=== PATIENT | male | born 1935 | race Caucasian/White ===

== ENCOUNTER 2025-03-06 15:58 | Inpatient (IN) | payer MEDICARE ==
[~2025-03-06] VITALS: Ht 180.3 cm; Wt 94.9 kg
[2025-03-06] MEDS ORDERED: FentaNYL Citrate 50 MCG/ML 2 ML Injection ONE (16:08)
[2025-03-06] MEDS ORDERED: FentaNYL Citrate 50 MCG/ML 2 ML Injection IV ONE (16:10)
[2025-03-06] MEDS ORDERED: CeFAZolin Sodium 2,000 MG in NS 100 ML IV ONE (16:15)
[2025-03-06] MEDS ORDERED: TAMS.4ER PO (16:15)
[2025-03-06] MEDS ORDERED: Aspir 8181 MG PO (16:16)
[2025-03-06] MEDS ORDERED: METO25ER PO (16:16)
[2025-03-06 16:29] LABS: BASOPHILS ABSOLUTE AUTO 0.04 K/mm3 (0.00-0.23); BASOPHILS PERCENT AUTO 0 % (0-2); EOSINOPHILS ABSOLUTE AUTO 0.20 K/mm3 (0.00-0.68); EOSINOPHILS PERCENT AUTO 2 % (0-6); Hematocrit 40.1 % (37.0-53.0); Hemoglobin 13.3 g/dL (13.5-17.5); IMMATURE GRAN ABSOLUTE AUTO 0.05 K/mm3 (0.00-0.10); IMMATURE GRAN PERCENT AUTO 1 % (0-1); LYMPHOCYTES ABSOLUTE AUTO 2.94 K/mm3 (0.84-5.20); LYMPHOCYTES PERCENT AUTO 32 % (21-46); MONOCYTES ABSOLUTE AUTO 1.08 K/mm3 (0.16-1.47); MONOCYTES PERCENT AUTO 12 % (4-13); Mean Corpuscular HGB Conc 33.2 g/dL (31.5-36.5); Mean Corpuscular Volume 92 fL (80-100); NEUTROPHILS ABSOLUTE AUTO 4.76 K/mm3 (1.96-9.15); NEUTROPHILS PERCENT AUTO 53 % (41-73); NRBC ABSOLUTE 0.00 K/mm3 (0.00-0.02); NRBC Auto 0.0 /100 WBC (0.0-0.2); Platelet Count 179 K/mm3 (150-400); RDW Coefficient Variation 14.1 % (11.7-14.2); RDW Standard Deviation 47.3 fL (35.1-46.3)
[2025-03-06 16:55] LABS: Alanine Aminotransfer (ALT/SGP 25.0 U/L (12-78); Albumin, Blood 3.4 g/dL (3.4-5.0); Albumin/Globulin Ratio 0.9 (0.8-1.8); Anion Gap 6.0 mmol/L (3-11); Aspartate Aminotrans (AST/SGOT 25.0 U/L (12-37); Bilirubin, Total 0.5 mg/dL (0.1-1.0); Blood Urea Nitrogen 16.0 mg/dL (8-24); CO2, Blood 27.0 mmol/L (21-32); Calcium, Blood 8.6 mg/dL (8.5-10.1); Chloride, Blood 108.0 mmol/L (98-108); Creatinine, Blood 0.81 mg/dL (0.60-1.20); Globulin, Blood 3.8 g/dL (2.2-4.0); Glucose, Blood 114.0 mg/dL (70-99); Potassium, Blood 3.8 mmol/L (3.5-5.5); Sodium, Blood 137.0 mmol/L (136-145); Total Protein, Blood 7.2 g/dL (6.4-8.2)
[2025-03-06] MEDS ORDERED: OMEP20ER PO (16:55)
[2025-03-06] MEDS ORDERED: TRAZ100 PO (16:56)
[2025-03-06] MEDS ORDERED: LATANOPROST2.5 M3 BOTHEYES (16:57)
[2025-03-06] MEDS ORDERED: HYDROmorphone HCl/Pf 1MG SYR IV ONE (17:55)
[2025-03-06] MEDS ORDERED: Ondansetron HCl 2 MG / ML 2ML Vial IV PRN (18:15)
[2025-03-06] MEDS ORDERED: OxyCODONE 5 mg/Acetamin 325 mg TABLET PO PRN (18:15)
[2025-03-06] MEDS ORDERED: FentaNYL Citrate 50 MCG/ML 2 ML Injection IV PRN (18:20)
[2025-03-06] MEDS ORDERED: Morphine Sulfate 4 MG/1 ML Injection IV ONE (20:25)
[2025-03-06] MEDS ORDERED: Lactobacil 2-S.Thermo-Bifido 1 1 Cap PO SCH (21:00)
[2025-03-06] MEDS ORDERED: Latanoprost 0.005% Opth Soln 2.5 ML BOTHEYES SCH (21:00)
[2025-03-07] VITALS (21 sets, daily range): BP systolic 114–202; BP diastolic 65–140
[2025-03-07] MEDS ORDERED: CeFAZolin Sodium 2,000 MG in NS 100 ML IV SCH
[2025-03-07] MEDS ORDERED: ALLO100 PO (00:42)
[2025-03-07] MEDS ORDERED: OxyCODONE 5 mg/Acetamin 325 mg TABLET PO ONE (04:00)
[2025-03-07] MEDS ORDERED: OxyCODONE 5 mg/Acetamin 325 mg TABLET PO PRN (04:00)
--- NOTE | 2025-03-07 04:40 | NUR ---
RECEIVING COORDINATOR SUMMARY PT IS A NEW ADMIT FROM THE ED TONIGHT FOR A R ANKLE FRACTURE. PT SLIPPED AND FELL IN THE SHOWER AT THE [facility]. PT ARRIVED TO ROOM WITH R ANKLE IN A SPLINT WITH LELA WRAP AND GAUZE. AREA REENFORCED DUE TO SOME DRAINAGE LEAKING THROUGH DRESSING. PT MEDICATED WITH PERCOCET AND FENTANYL WITH MINIMAL RELIEF. RECEIVED ORDER FROM PICK PACK WORKER HOSPITALIST TO INCREASE PERCOCET ORDER TO 2 TABS AND PT HAS DONE BETTER WITH THAT. AFTER ARRIVING TO THE UNIT, PT AND HIS SON STATED THAT THEY DIDN'T WANT THE PT TO HAVE SURGERY HERE AND THAT THEY WANTED TRANSFERRED TO [facility] SINCE THAT IS WHERE THE PT LIVES. WILL PASS THAT ALONG IN REPORT SO THAT SURGEON CAN DISCUSS THIS WITH PT AND ARRANGE POSSIBLE TRANSFER.
[2025-03-07 06:12] LABS: Hematocrit 35.5 % (37.0-53.0); Hemoglobin 11.9 g/dL (13.5-17.5); Mean Corpuscular HGB Conc 33.5 g/dL (31.5-36.5); Mean Corpuscular Volume 91 fL (80-100); NRBC ABSOLUTE 0.00 K/mm3 (0.00-0.02); NRBC Auto 0.0 /100 WBC (0.0-0.2); Platelet Count 152 K/mm3 (150-400); RDW Coefficient Variation 14.2 % (11.7-14.2); RDW Standard Deviation 47.3 fL (35.1-46.3)
[2025-03-07 06:35] LABS: Magnesium, Blood 2.0 mg/dL (1.6-2.4)
[2025-03-07 06:36] LABS: Anion Gap 6.0 mmol/L (3-11); Blood Urea Nitrogen 11.0 mg/dL (8-24); CO2, Blood 28.0 mmol/L (21-32); Calcium, Blood 8.1 mg/dL (8.5-10.1); Chloride, Blood 107.0 mmol/L (98-108); Creatinine, Blood 0.65 mg/dL (0.60-1.20); Glucose, Blood 108.0 mg/dL (70-99); Potassium, Blood 3.8 mmol/L (3.5-5.5); Sodium, Blood 137.0 mmol/L (136-145)
--- NOTE | 2025-03-07 11:35 | NUR ---
MORNING NOTE THIS RN ASSUMED CARE AT APPROX 0715. PATIENT W/ R ANKLE FX. VSS. R ANKLE IN SPLINT W/ MINIMAL SS DRAINAGE - CAP REFILL <3 SECONDS. DENIES N/T. MANAGING PAIN PER EMAR. MD DESHPANDE AT BEDSIDE THIS MORNING FOR SURGICAL CONSULT - PATIENT AND HIS SON REQUESTING TRANSFER FOR PROCEDURE AT [facility] FOLLOWING FURTHER DISCUSSION FROM MULTIPLE STAFF MEMBERS, PATIENT NOW REQUESTING THAT PROCEDURE BE DONE HERE TO AVOID COMPLICATIONS OF WAITING FOR TRANSFER. MD DESHPANDE UPDATED - AWAITING NEW ORDERS. PATIENT NPO SINCE MIDNIGHT. CALL LIGHT IN REACH.
--- NOTE | 2025-03-07 14:50 | NUR ---
PATIENT TRANSFERRED OFF UNIT FOR PROCEDURE
--- NOTE | 2025-03-07 15:22 | NUR ---
GOLD RING REMOVED AND BROUGHT BACK TO ROOM IN BAG WITH PATIENT LABEL.
--- NOTE | 2025-03-07 15:22 | NUR ---
History, Chart, Medications and Allergies reviewed before start of procedure. Lungs clear T/O to Auscultation. Patient confirms NPO status and agrees with scheduled surgery. Pre-Op teaching done. Pt verbalizes understanding.
[2025-03-07] MEDS ORDERED: HydrALAZINE HCl 20 MG / ML 1ML Vial IV ONE (15:25)
[2025-03-07] MEDS ORDERED: Dexamethasone Sod Phos 10 MG/ML 1ML VIAL ONE ×2 (15:40→17:23)
[2025-03-07] MEDS ORDERED: Bupivacaine HCl 0.25% 30 ML Injection ONE (15:40)
--- NOTE | 2025-03-07 15:55 | NUR ---
1551: TIME OUT COMPLETED AT BEDSIDE. DR. EPPS AT BEDSIDE FOR BLOCK. 1555: PT PLACED ON MONITORS, O2 VIA NC AND SPO2. NO SEDATION GIVEN. PROCEDURE STARTED FOR FIRST BLOCK. 1600: 1ST BLOCK COMPLETED. ROMINA WELL. ASSISTED TO LEFT SIDE. 1610: 2ND BLOCK STARTED, PT ROMINA WELL. SEE ANES NOTES.
[2025-03-07] MEDS ORDERED: Metoprolol Tartrate 5 ML IV ONE (16:38)
--- NOTE | 2025-03-07 16:49 | NUR ---
LATE ENTRY: DISCUSSION AT BEDSIDE WITH DR. BARRON, DR. EPPS, DR. CLEANING AND NUNO WARNER REGARDING BLOCK PROCEDURE PRIOR TO CONSENT BY DR. DESHPANDE. ANES IN AGREEMENT TO PROCEED WITH BLOCK WITHOUT SEDATION. RIGHT LEG MARKED BY DR. EPPS AND ANES CONSULT NOTE IN CHART. PT AGREES TO PROCEDURE.
[2025-03-07] MEDS ORDERED: Vancomycin HCl 1000 MG ADDvantage ONE (17:06)
[2025-03-07] MEDS ORDERED: Ondansetron HCl 2 MG / ML 2ML Vial ONE (17:23)
[2025-03-07] MEDS ORDERED: Ketorolac Tromethamine 30mg Vial ONE (17:24)
[2025-03-07] MEDS ORDERED: Rocuronium Bromide 10 MG/ML 5ML Injection IV ONE ×2 (17:32→17:36)
[2025-03-07] MEDS ORDERED: FentaNYL Citrate 50 MCG/ML 2 ML Injection IV PRN (17:35)
[2025-03-07] MEDS ORDERED: HYDROmorphone HCl/Pf 1MG SYR IV PRN (17:40)
[2025-03-07] MEDS ORDERED: Albuterol 2.5 MG/3 ML VIAL INH PRN (17:40)
[2025-03-07] MEDS ORDERED: Ondansetron HCl 2 MG / ML 2ML Vial IV PRN (17:40)
--- NOTE | 2025-03-07 17:40 | NUR ---
SHIFT SUMMARY NO ACUTE CHANGES SINCE MORNING NOTE. PATIENT ALERT AND ORIENTED X4 W/ OCCASIONAL EPISODES OF FORGETFULNESS. EASILY REDIRECTABLE. IS [facility]. SON AT BEDSIDE T/O DAY ASSISTING W/ CARE PRN. HTN NOTED PRIOR TO PROCEDURE - SBP 180s. ASYMPTOMATIC, DENIES CHEST PAIN OR PRESSURE. PACU RNs MADE AWARE PRIOR TO TRANSFER. PATIENT W/ R ANKLE FX - CURRENTLY OUT OF ROOM FOR PROCEDURE.
[2025-03-07] MEDS ORDERED: HYDROmorphone HCl/Pf 1MG SYR ONE (17:51)
[2025-03-07] MEDS ORDERED: Sugammadex Sodium 200 MG/2ML SDV (100 MG/ML) ONE (17:56)
[2025-03-08 00:27] VITALS: BP 164/87
[2025-03-08 02:24] VITALS: BP 176/80
--- NOTE | 2025-03-08 04:24 | NUR ---
SHIFT SUMMARY BIRDIE WAS ALERT AND ORIENTED X2 WHEN HE RETURNED FROM OR. PT WAS PROFOUNDLY CONFUSED, AGITATED, AND IMPULSIVE. PT SON AT BEDSIDE T/O SHIFT. PT MENTATION GRADUALLY DE-ESCALATED TO NEAR BASELINE. NO COMPLAINTS OF FOOT/ ANKLE PAIN. PT W/ LOCAL BLOCK. TEMPERATURE TO TOES WARM, NO BLEEDING NOTED. BED ALARM IN PLACE NO ACUTE EVENTS TONIGHT. PT DENIES SOB, AND NAUSEA.
[2025-03-08 07:38] VITALS: BP 120/82
[2025-03-08] MEDS ORDERED: HYDROmorphone HCl/Pf 1MG SYR IV PRN (10:30)
[2025-03-08] MEDS ORDERED: Cholecalciferol 1000 Unit Tablet (=25MCG) PO SCH (11:00)
[2025-03-08 14:49] VITALS: BP 154/79
[2025-03-08] MEDS ORDERED: CeFAZolin Sodium 2,000 MG VIAL ONE (15:31)
--- NOTE | 2025-03-08 16:07 | NUR ---
SHIFT SUMMARY NO ACUTE EVENTS THIS SHIFT. PATIENT ALERT AND ORIENTED X4. IS [place] - COMMUNICATING NEEDS EFFECTIVELY. SON AT BEDSIDE ASSISTING W/ CARE T/O DAY. VSS. POD 1 R ANKLE ORIF. PREVIOUS DRESSING W/ MODERATE SANGUINOUS DRAINAGE - DRESSING CHANGED THIS AFTERNOON PER MD ORDER. CAP REFILL <3 SECONDS. DENIES N/T. PPP. R ANKLE IN BOOT. PT EVAL COMPLETED, AWAITING OT - SNF REC. NWB RLE. AMBULATING W/ 2P ASSIST FWW GB - CURRENTLY UP IN CHAIR. MANAGING PAIN PER EMAR. TOLERATING PO INTAKE. VOIDING. CALL LIGHT IN REACH.
[2025-03-08 19:42] VITALS: BP 142/68
[2025-03-08] MEDS ORDERED: Polyethylene Glycol 3350 17 gm PO SCH (20:20)
[2025-03-09 03:44] VITALS: BP 152/77
--- NOTE | 2025-03-09 04:28 | NUR ---
SHIFT SUMMARY BIRDIE WAS ALERT AND FULLY ORIENTED ON ASSESSMENT. PAIN WELL MANAGED. PT REPORTS NO BM FOR SEVERAL DAYS, MIRALAX ORDERED. PT HAVING A DIFFICULT TIME WITH WB RESTRICTIONS DURING TRANSFER TO BS. DRESSING TO R FOOT C.D.I. CIRCULATION AND SENSATION INTACT TO BLE. MENTATION AT BASELINE. NO ACUTE EVENTS THIS SHIFT, NO CHANGES TO PT CONDITION NOTED.
[2025-03-09 07:38] VITALS: BP 165/89
[2025-03-09 14:01] VITALS: BP 143/69
[2025-03-09] MEDS ORDERED: Enoxaparin 40 MG/0.4 ML SYR SC SCH (16:00)
--- NOTE | 2025-03-09 16:30 | NUR ---
SHIFT SUMMARY PATIENT IS AOX4, POD2 R ORIF, LELA WRAP WITH BOOT IN PLACE. C/D/I. PATIENT IS ABLE TO WORK WITH THERAPY AND TRANSFER 2 PPL MAX TO CHAIR AND BSC. PASSING FLATUS, VOIDING WELL. PAIN MANAGED WITH PO MEDS, PER EMAR. VSS. AWAITING SNF ACCEPTANCE. CALL LIGHT IN REACH.
[2025-03-09 19:26] VITALS: BP 158/67
[2025-03-09] MEDS ORDERED: Magnesium Hydroxide Conc 10 ML UDC PO ONE (21:40)
[2025-03-10 04:33] VITALS: BP 145/68
--- NOTE | 2025-03-10 04:41 | NUR ---
SHIFT SUMMARY BIRDIE WAS ALERT AND FULLY ORIENTED ON ASSESSMENT. PT PRIMARY COMPLAINT TONIGHT WAS CONSTIPATION. FLEET ENEMA AND MILK OF MAG ORDERED WITH SUBSEQUENT BM'S. NO ACUTE EVENTS TONIGHT, NO NOTED CHANGES TO PT CONDITION, PT HAVING A DIFFICULT TIME KEEPING WEIGHT OFF OF R FOOT DURING STAND/PIV TRANSFERS.
[2025-03-10 05:00] LABS: Hematocrit 31.5 % (37.0-53.0); Hemoglobin 10.2 g/dL (13.5-17.5); Mean Corpuscular HGB Conc 32.4 g/dL (31.5-36.5); Mean Corpuscular Volume 92 fL (80-100); NRBC ABSOLUTE 0.00 K/mm3 (0.00-0.02); NRBC Auto 0.0 /100 WBC (0.0-0.2); Platelet Count 183 K/mm3 (150-400); RDW Coefficient Variation 14.3 % (11.7-14.2); RDW Standard Deviation 48.2 fL (35.1-46.3)
[2025-03-10 05:21] LABS: Albumin, Blood 2.6 g/dL (3.4-5.0); Anion Gap 9 mmol/L (3-11); Blood Urea Nitrogen 11 mg/dL (8-24); CO2, Blood 29 mmol/L (21-32); Calcium, Blood 8.1 mg/dL (8.5-10.1); Chloride, Blood 106 mmol/L (98-108); Creatinine, Blood 0.72 mg/dL (0.60-1.20); Glucose, Blood 104 mg/dL (70-99); Magnesium, Blood 2.4 mg/dL (1.6-2.4); Phosphorus, Blood 2.9 mg/dL (2.5-4.9); Potassium, Blood 3.8 mmol/L (3.5-5.5); Sodium, Blood 140 mmol/L (136-145)
[2025-03-10 07:28] VITALS: BP 138/70
[2025-03-10 15:15] VITALS: BP 144/72
--- NOTE | 2025-03-10 18:28 | NUR ---
SHIFT SUMMARY PATIENT IS AOX4, POD4 R ORIF. LELA WRAP AND HARD BOOT TO RLE. NWB TO R LEG. 2 ASSIST GB, FWW. ABLE TO MAKE NEEDS KNOWN, PASSING GAS, BM, VOIDING. TOLERATING PO INTAKE AND PAIN WELL MANAGED. AWAITING SNF PLACEMENT. VSS, CALL LIGHT IN REACH.
[2025-03-10 19:14] VITALS: BP 160/66
[2025-03-10] MEDS ORDERED: Docusate Sodium/Senna 1 Tab PO SCH (21:00)
--- NOTE | 2025-03-11 05:37 | NUR ---
HIGHWAY LANDSCAPE ARCHITECT SUMMARY NO ACUTE CHANGES THIS SHIFT. PT IS POD 4 FOR R ANKLE ORIF. GAUZE WITH LELA WRAP IN PLACE AND INTACT, PT WITH BOOT ON OVER DRESSINGS PER ORDER. PT ABLE TO WIGGLE TOES AND HAS GOOD SENSATION AND CAP REFILL TO RLE. TRANSFERRED FROM CHAIR TO BSC AND BACK TO BED WITH MODERATE ASSIST. PT DOES FAIRLY WELL MAINTAINING NWB STATUS TO RLE. PAIN CONTROLLED WITH OXYCODONE. VSS, WCTM.
[2025-03-11 07:25] VITALS: BP 153/132
--- NOTE | 2025-03-11 10:53 | NUR ---
Spiritual Care Callback Pt. is awake in bed and welcomes my visit. Pt. is pleasant but does display some anxiety over D/C plans. Listened with empathy and a calming presence as I sought to normalize the Pt. Experience. Facilitated a life review and considered matters of his work and family as well as his 's passing 19 months ago to Pulmonary Fibrosis. This dress cutter slowed the conversation down and consider matters of he convelescence and Pts. subsequent grief. Pt. displayed evidence of engagement and awareness. Prayed with the Pt. Pt. verbalized gratitude of rthe spiritual care visit.
[2025-03-11 15:29] VITALS: BP 156/67
--- NOTE | 2025-03-11 16:01 | NUR ---
SHIFT SUMMARY PATIENT AOX4, POD5 R ORIF. LELA WRAP AND BOOT TO RLE, C/D/I. PATIENT IS A 2 MAX TO TRANSFER TO THE CHAIR AND BSC. UP T/O THE SHIFT. BM TODAY, VOIDING WELL. VSS. MEDICATE FOR PAIN PRN. CALL LIGHT IN REACH.
[2025-03-11 20:47] VITALS: BP 175/83
--- NOTE | 2025-03-12 06:00 | NUR ---
SCRAPPER SUMMARY NO ACUTE CHANGES THIS SHIFT. PT IS POD 5 FOR R ANKLE ORIF. PAIN CONTROLLED WITH OXYCODONE 10 MG. ABLE TO WIGGLE TOES ON R FOOT AND SENSATION INTACT. TOES WARM. PT ABLE TO TRANSFER FROM CHAIR TO BED BY USING FWW AND SHUFFLING ON L FOOT, DOES REQUIRE ASSISTANCE WITH GAIT BELT PT CAN BE A BIT UNSTEADY. PT HAD LARGE BM AT START OF SHIFT AND IS TOLERATING PO INTAKE WITH NO ISSUE. PT AWAITING SNF PLACEMENT IN [facility] HE LIV[facility]. WCTM.
[2025-03-12 07:05] VITALS: BP 160/70
--- NOTE | 2025-03-12 13:12 | NUR ---
Upon receiving a referral for spiritual care, I visited the patient. He talks at length about the of his spouse, their 64 yrs together and yr and a half long grief process with counseling that has brought him to place of some peace and stability. We talked about his sons, his horrible falls and his struggle with being away from his friends and family in [place]. We explore his Latter-Day spiritual traditions and the strong victoriano the his spouse exhibited all the way to her demise. I provided therapeutic listening, companionship and a calming presence. The patient responded well and stated the he greatly appreciated the visit and that he felt encouraged by it.
[2025-03-12 14:38] VITALS: BP 151/68
--- NOTE | 2025-03-12 16:43 | NUR ---
SHIFT SUMMARY POD 5 R ANKLE ORIF PT UP TO CHAIR FOR MOST OF SHIFT. IND WITH USE OF URNIAL. NEEDS 2 PERSON ASSIST WITH TRANSFERS TO BED OR CHAIR. ABLE TO MAINTAIN WEIGHT BEARING STATUS FOR SHORT PERIODS OF TIME. FREQUENT REMINDERS. PT PLEASANT AND COOPERATIVE. PLAN IS TO DISCHARGE TO SNF ONCE A BED IS AVAILABLE. DRESSING TO FOOT REMAINS CDI.
[2025-03-12 18:35] VITALS: BP 123/55
--- NOTE | 2025-03-13 04:39 | NUR ---
E COMMERCE PROJECT MANAGER SUMMARY NO ACUTE CHANGES THIS SHIFT. PT IS POD 6 FOR R ANKLE ORIF. WALKING BOOT REMAINS IN PLACE AND DRESSINGS C/D/I. PT HAS GOOD CAP REFILL AND SENSATION TO R FOOT AND ABLE TO WIGGLE TOES. PT COMPLAINED OF SOME ITCHING ON HIS BACK AND ON ASSESSMENT FOUND TO HAVE A BIT OF A RASH, MOISTURIZING LOTION APPLIED WHICH PT DID SAY HELPED A BIT. MEDICATED FOR PAIN WITH OXYCODONE PER MAR WITH GOOD PAIN RELIEF. VSS, WCTM.
[2025-03-13 07:17] VITALS: BP 166/69
--- NOTE | 2025-03-13 14:58 | NUR ---
P.jose m is awake in bed and welcomed my visit. Pt. is pleasant and displays evidence of being primarily bored, and awaiting d/c to a [place] rehab. Seek to normalize the Pt. experience. Facilitate other updates and re-establish rapport. Listen with interest and engagement. Prayed with Pt. Pt. verbalized gratitude for the spiritual care visit.
[2025-03-13 15:13] VITALS: BP 125/61
--- NOTE | 2025-03-13 17:22 | NUR ---
SHIFT SUMMARY PT A/OX4 T/O SHIFT. POD 6 R ANKLE ORIF, AMBULATING STAND PIVOT 2X FWW AND GB TO BSC NWB ON RIGHT FOOT. PT VOIDING APPROPRIATELY. NO ACUTE CHANGES. NO BM TODAY. PT WORKED W/ OT TODAY. CALL LIGHT IN REACH ABLE TO MAKE NEEDS KNOWN. PAIN MANAGED PER EMAR.
[2025-03-13 18:09] VITALS: BP 139/67
[2025-03-13 20:50] VITALS: BP 147/67
[2025-03-14 04:21] VITALS: BP 152/70
--- NOTE | 2025-03-14 04:32 | NUR ---
SHIFT SUMMARY NOC. PT S/P ORIF OF RIGHT ANKLE AFTER FALL. PT A/O X4 AND NWB ON RIGHT ANKLE. PT NEEDS REMINDING WITH THIS. DRESSING AND BOOT ARE C/D/I. PT MEDICATED FOR PAIN PER EMAR. PT VOIDING URINE AND HAD A BM THIS SHIFT. PT MAKES NEEDS KNOWN AND CALLS APPROPRIATELY.
[2025-03-14 08:46] VITALS: BP 120/60
--- NOTE | 2025-03-14 10:56 | NUR ---
DISCHARGE PATIENT IS DISCHARGED TO SNF IN [place] REPORT CALLED, PACKET WITH ORDERS AND INFO SENT WITH TRANSPORT. PATIENT IS TRANSFERRED TO W/C, IV TAKEN OUT. ALL BELONGINGS SENT WITH PATIENT. PATIENT LEAVES WITH TRANSPORT.
== END 2025-03-14 10:35 | DRG 493 ==
LOC: ER 15:58 → SURS 18:11
PROVIDERS: Internal Medicine; Nurse Practitioner Acute Care; Orthopaedic Surgery Sports Medicine; Student in an Organized Health Care Education/Training Program; ADMIT Hospitalist
PROC: 0QSG04Z Reposition Right Tibia with Internal Fixation Device, Open Approach (ICD-10-PCS; 2025-03-07)
PROC: 0QSJ04Z Reposition Right Fibula with Internal Fixation Device, Open Approach (ICD-10-PCS; principal; 2025-03-07 15:00)
DX: S82.841B Displaced bimalleolar fracture of right lower leg, initial encounter for open fracture type I or II (principal); D62 Acute posthemorrhagic anemia; I10 Essential (primary) hypertension; N40.0 Benign prostatic hyperplasia without lower urinary tract symptoms; K21.9 Gastro-esophageal reflux disease without esophagitis; H40.9 Unspecified glaucoma; G47.00 Insomnia, unspecified; W01.0XXA Fall on same level from slipping, tripping and stumbling without subsequent striking against object, initial encounter; Z95.2 Presence of prosthetic heart valve; Z91.041 Radiographic dye allergy status; Z88.2 Allergy status to sulfonamides; Z88.5 Allergy status to narcotic agent; Z88.0 Allergy status to penicillin; Z79.82 Long term (current) use of aspirin; Y92.59 Other trade areas as the place of occurrence of the external cause
CPT/HCPCS: 36415; 73610; 80048; 80053; 80069; 83735; 85025; 85027; 94760; 96365; 96375; 97110; 97161; 97165; 97530; 97535; 99285-25; A9270; C1713; J0360; J0690; J1100; J1171; J1650; J1885; J2270; J2405; J2704; J3010; J3373; J7120